=== PATIENT | male | born 1960 ===

== ENCOUNTER 2022-01-13 09:16 | Day surgery (SDC) | payer OTHER ==
[~2022-01-13] VITALS: Ht 177.8 cm; Wt 102.1 kg
[~2022-01-13 09:16] MED LIST: CHILDREN'S ASPI81 MG PO; COZAAR25 MG PO; D3 + K2 DOTS 11 EACH PO; FENOFIBRATE50 MG PO; LEVO-T25 MCG PO
== END 2022-01-13 16:00 | disposition home or self-care (01) ==
LOC: CIR.AMB 09:16
PROVIDERS: ATTEND Orthopaedic Surgery
DX: M75.22 Bicipital tendinitis, left shoulder (principal); Z20.822 Contact with and (suspected) exposure to COVID-19; J45.909 Unspecified asthma, uncomplicated; Z86.16 Personal history of COVID-19; E66.9 Obesity, unspecified